=== PATIENT | male | born 1960 | race Caucasian/White ===

== ENCOUNTER → 2017-07-07 | Outpatient (CLI) | payer BC ==
[~2017-07-07] MED LIST: NOHOMEMEDICATIONS; NORCO 5-325 TA1 EACH PO
--- NOTE | ~2017-07-07 | EXE ---
[facility] [address] [place] [address] STRESS ECHOCARDIOGRAM Name: BE WHELAN Room #: REG Hugh#: [id number] Admission: 07/07/17 Attend Phys: Alberto Ugalde Discharge: Date of : 58 Date of Service: 07/07/17 1334 Report #: [id number] THIS REPORT FOR: //name// APPROVED REPORT Exam: Stress Echocardiogram Indication: Screening for CAD Patient Location: Out-Patient Stress Nurse: Ava Weinberg RN Room #: Echo lab Status: routine Ht: 5 ft 9 in HR: 73 bpm BP: 118/80 mmHg Medical History Medical History: No history of CAD Allergies: No known drug allergies Cardiac Risk Factors: FHX of CAD Exercise History: Physically active Procedure The patient underwent an Exercise Stress Test using the Karl Protocol. Blood pressure, heart rate, and EKG were monitored. An Echocardiogram was performed by computer systems technician in four stages in quad fashion. At peak stress, four selected images were obtained and placed side by side with resting images for comparison. Stress Test Details Stress Test: Exercise stress testing was performed using a Karl protocol. HR Resting HR: 73 bpm Max Heart Rate (APMHR): 162 bpm Max HR Achieved: 173 bpm Target HR (85% APMHR): 137 bpm % of APMHR: 106 Recovery HR: 90 bpm HR response to stress: Normal HR response to stress BP Resting BP: 118/80 mmHg Max BP: 180/68 mmHg Recovery BP: 120/69 mmHg ECG Resting ECG: Sinus Rhythm [facility] [place] [address] STRESS ECHOCARDIOGRAM Name: BE WHELAN Room #: REG [facility]#: [id number] Admission: 07/07/17 Attend Phys: Alberto Ugalde Discharge: Date of : 58 Date of Service: 07/07/17 1334 Report #: [id number] Stress ECG: Sinus Tachycardia Recovery ECG: Sinus Rhythm Clinical Reason for Termination: Maximal effort Exercise duration: 12 min 19 sec Highest Stage Achieved: Stage 6: 5.5 mph at 20% grade. Exercise capacity: 13.7 METs Overall Exercise Capacity for Age: Excellent Stress ECG Conclusion 1. SUBJECTIVELY NEGATIVE FOR ISCHEMIA 2. ELECTROCARDIOGRAPHICALLY NEGATIVE FOR ISCHEMIA 3. EXCELLENT FUNCTIONAL CAPACITY Pre-Stress Echo The resting Echocardiogram showed normal left ventricular contractility with an estimated Ejection Fraction of about 50-55%. Normal wall motion in all segments on baseline images. Post-Stress Echo The stress Echocardiogram showed normal left ventricular contractility with an estimated Ejection Fraction of about 65-70%. Normal augmentation of wall motion in all segments on post stress images. Clinical Normal augmentation of myocardial wall segments using a 17 segment model. Conclusion 1. LOW RISK STUDY No prior study available for comparison. <Conclusion> 1. LOW RISK STUDY <ELECTRONICALLY SIGNED> By: Alberto Villalba MD 07/07/17 1334 1334 1334 Alberto Villalba MD /INF
== END ==
LOC: CV 08:47
DX: R94.31 Abnormal electrocardiogram [ECG] [EKG] (principal); R06.09 Other forms of dyspnea